=== PATIENT | male | born 1995 | race Hispanic/Latino ===

== ENCOUNTER 2023-05-24 16:29 | Emergency (ER) | payer SELFPAY ==
[~2023-05-24] VITALS: Ht 170.2 cm; Wt 80.0 kg
[2023-05-24] MEDS ORDERED: BACTRIM DS1 TAB PO (18:49)
[2023-05-24] MEDS ORDERED: LORTAB 5/3255 MG PO (18:50)
[2023-05-24 19:05] VITALS: BP 129/83
== END 2023-05-24 19:06 | disposition home or self-care (01) | DRG 603 ==
LOC: ED 16:29
PROC: 0H94XZZ Drainage of Neck Skin, External Approach (ICD-10-PCS; principal; 2023-05-24)
DX: L02.11 Cutaneous abscess of neck (principal)

== ENCOUNTER 2023-05-26 11:03 | Emergency (ER) | payer SELFPAY ==
[~2023-05-26] VITALS: Ht 170.2 cm; Wt 80.0 kg
[~2023-05-26 11:03] MED LIST: BACTRIM DS1 TAB PO; LORTAB 5/3255 MG PO
[2023-05-26] MEDS ORDERED: GENTAMICIN SULF0.1 % EX (12:18)
[2023-05-26 12:20] VITALS: BP 118/78
== END 2023-05-26 12:20 | disposition home or self-care (01) | DRG 951 ==
LOC: ED 11:03
DX: Z48.01 Encounter for change or removal of surgical wound dressing (principal); F17.200 Nicotine dependence, unspecified, uncomplicated